=== PATIENT | male | born 1975 | race Two or more races ===

== ENCOUNTER 2016-07-21 12:42 | Emergency (ER) | payer SELFPAY ==
[2016-07-21 14:17] LABS: URINE BILIRUBIN SMALL (NEG); URINE BLOOD SMALL (NEG); URINE GLUCOSE (UA) NEGATIVE (NEG); URINE KETONE NEGATIVE (NEG); URINE LEUKOCYTE ESTERASE POSITIVE (NEG); URINE NITRITE NEGATIVE (NEG); URINE PROTEIN MODERATE (NEG)
[2016-07-21 14:19] LABS: URINE APPEARANCE HAZY; URINE COLOR YELLOW
[2016-07-21 14:44] LABS: URINE BACTERIA 1+; URINE WBC 15-20 /[HPF] (0-5)
[2016-07-21 14:45] LABS: URINE MUCUS 2+
== END 2016-07-21 14:39 ==
LOC: EDMED 12:42
PROVIDERS: Emergency Medicine
DX: F10.20 Alcohol dependence, uncomplicated (principal); R20.2 Paresthesia of skin